=== PATIENT | male | born 1965 | race Caucasian/White ===

== ENCOUNTER 2016-09-16 06:29 | Day surgery (SDC) | payer BC ==
[~2016-09-16 06:29] MED LIST: Dextrose 5%-0.45% NaCl 1,000 ML IV SCH; Midazolam 1 MG/ML 2 ML SDV ONE; Sodium Chloride 0.9% 10 ML Syringe FLUSH PRN; fentaNYL 100 MCG/2 ML SDV ONE
[2016-09-16] MEDS ORDERED: fentaNYL 100 MCG/2 ML SDV IV ONE ×5 (08:09→16:11)
[2016-09-16] MEDS ORDERED: Midazolam 1 MG/ML 2 ML SDV IV ONE ×7 (08:10→16:11)
--- NOTE | 2016-09-16 09:03 | OR ---
DATE: 09/16/2016 PROCEDURE: Total colonoscopy. INSTRUMENT USED: CF-H180AL Olympus video colonoscope. PREMEDICATIONS: Fentanyl 150 mcg intravenous, Versed 4 mg intravenous. Nasal O2 cannula. The procedure was done under pulse oximetry, BP recording, and new car salesperson. INDICATION: The patient with longstanding constipation on laxatives with intermittent rectal bleeding. Colonoscopic examination is done for detection of any polypoid lesions and removal, endoscopic hemostasis therapy if needed. DESCRIPTION OF PROCEDURE: Initial rectal exam showed large external hemorrhoidal tags. Rigid anoscopy showed internal hemorrhoids without bleeding from them. The colonoscope was passed with ease. Few scattered diverticula were noted in the distal left colon. The scope was passed with ease up to the ileocecal area, photographs were taken of the normal-appearing cecum, identified by landmarks of appendiceal orifice and double-bulged ileocecal folds. No bleeding was noted from any of the visualized areas at the commencement of the examination. No stricture. No vascular ectasia. No large isolated ulcerations seen. No evidence of diffuse inflammatory bowel disease in the form of friability, contact bleeding, or ulcerations. No polyp or tumor mass identified. Probing the proximal sides of folds and flexures, using adequate distention and clearing up the stool material, withdrawal of the scope was made, cecum to rectum time over 6 minutes. No bleeding was noted from any of the visualized areas at the completion of examination. IMPRESSION: 1. External and internal hemorrhoids. 2. Diverticulosis. The patient tolerated the procedure well. [facility] /[id number]
[2016-09-16 11:00] VITALS: BP 132/80
--- NOTE | 2016-09-16 11:08 | PN ---
DATE: 09/16/2016 SUBJECTIVE: He has had some abdominal pain with inability to get rid of air per rectum. No vomiting. No chills. No related back pain. Feels a bit better since getting some of the air out through the rectum. OBJECTIVE: Vital signs: Stable. General: Alert, oriented. Chest: Not short of breath at rest. Lungs: Clear. Heart: S1, S2, regular. Abdomen: Obese, soft. Some tenderness elicited in all areas. Bowel sounds active. PLAN: Further observation with gradual increase in physical activities. If the patient is able to get rid of air and the pain subsides, to go home with instructions as given before. If not, further evaluation to be planned. Discussed in detail with the patient and his , they are acceptable. [facility] /[id number]
== END 2016-09-16 11:15 | disposition home or self-care (01) ==
LOC: DL.ENDO 06:29
PROVIDERS: ATTEND Internal Medicine Gastroenterology
DX: K57.30 Diverticulosis of large intestine without perforation or abscess without bleeding (principal); K64.8 Other hemorrhoids; K64.4 Residual hemorrhoidal skin tags; I10 Essential (primary) hypertension; E66.9 Obesity, unspecified; E78.5 Hyperlipidemia, unspecified; Z88.1 Allergy status to other antibiotic agents; Z79.899 Other long term (current) drug therapy
CPT/HCPCS: 45378; J2250; J3010; J7042